=== PATIENT | female | born 1965 | race American Indian/Alaskan Native ===

== ENCOUNTER 2017-10-25 08:38 | Inpatient (IN) | payer OTHER ==
[2017-10-25 08:39] VITALS: BMI 34.2
[2017-10-25 10:01] LABS: BASO # 0.1 K/uL (0.0-0.2); BASO % 1.3 % (0.0-2.0); EOS # 0.3 K/uL (0.0-0.7); EOS % 4.9 % (0.0-4.0); HEMOGLOBIN 11.2 g/dL (12.0-16.0); LYMPH # 2.2 K/uL (1.0-4.3); LYMPH % 33.5 % (20.0-40.0); MEAN CORPUSCULAR HEMOGLOBIN 25.2 pg (27.0-31.0); MEAN CORPUSCULAR HGB CONC 32.3 g/dL (33.0-37.0); MEAN PLATELET VOLUME 7.5 fl (7.2-11.7); MONO # 0.4 K/uL (0.0-0.8); MONO % 6.3 % (0.0-10.0); NEUT # 3.5 K/uL (1.8-7.0); NRBC % 0.1 % (0.0-0.0); RBC 4.44 Mil/uL (3.80-5.20); WHITE BLOOD COUNT 6.6 K/uL (4.8-10.8)
[2017-10-25 10:12] LABS: PARTIAL THROMBOPLASTIN TIME 28.3 Seconds (25.6-37.1); PROTHROMBIN TIME 11.2 Seconds (9.8-13.1)
[2017-10-25 10:15] LABS: ALB/GLOB RATIO 1.2 (1.0-2.1); ALBUMIN 4.1 g/dL (3.5-5.0); ALT/SGPT 24 U/L (9-52); AST/SGOT 18 U/L (14-36); BLOOD UREA NITROGEN 15 mg/dl (7-17); CALCIUM 9.7 mg/dL (8.4-10.2); GFR AFRICAN-AMERICAN > 60; GFR NON-AFRICAN AMERICAN > 60; HDL CHOLESTEROL 42 MG/DL (30-70)
[2017-10-25 10:26] LABS: LDL CHOLESTEROL 108 mg/dL (0-129)
--- NOTE | 2017-10-25 10:33 | RAD ---
HISTORY: double vision COMPARISON: 12/30/2015 FINDINGS: LUNGS: No consolidation Left perihilar oval nodular opacities are similar to earlier studies including a study dating back to 2013 this may relate to prominent vessels on end and/or stable nodules/granulomas. Stability since 2013 supports benign etiology. PLEURA: No significant pleural effusion identified, no pneumothorax apparent. CARDIOVASCULAR: Normal. OSSEOUS STRUCTURES: No significant abnormalities. VISUALIZED UPPER ABDOMEN: Normal. OTHER FINDINGS: None. IMPRESSION: No active disease.
[2017-10-25] MEDS ORDERED: Sodium Chloride 0.9% 50 ML IV ONE (10:52)
[2017-10-25] MEDS ORDERED: Iohexol 300 100 ML IJ ONE (10:52)
--- NOTE | 2017-10-25 11:03 | ED PDOC ---
HPI:STROKE - Time Time: 09:15 - Historian Historian: Patient - Chief Complaint Chief Complaint: other (double vision) - Onset Date: 10/24/17 Time: 08:00 Onset: Days (1+) - Timing Timing: Currently Symptomatic - Exacerbated by Exacerbated by:: Other (eye movement) - Relieved by Relieved by:: Nothing - TPA Positive for Contraindication: Yes Reason tPA is not being Administered: symptoms ongoing >24hr - Notes: Notes:: 52yo female presents c/o diplopia since yesterday morning on awakening from sleep. States sees double vision when looking straight ahead or to the right, when looks left vision improves. Denies weakness, numbness change in speech or swallowing. C/o left frontal headache. Also notes palpable mass to right side of upper neck/face noticed many months ago, for which PMD Dr Khan ordered a CT scan but has not yet gotten test. NIHSS Stroke Scale - Date/Time Evaluation Performed Date Performed: 10/25/17 Time Performed: 09:20 When Was NIHSS Performed: Baseline - How Severe is the Stroke Level of Consciousness: 0=Alert LOC to Questions: 0=Both comments correct LOC to commands: 0=Obeys both correctly Best Gaze: 0=Normal Visual: 1=Partial hemianopia Facial: 0=Normal Motor Arm - Left: 0=No drift Motor Arm - Right: 0=No drift Motor Leg - Left: 1=Drift before 5 sec Motor Leg - Right: 1=Drift before 5 sec Limb Ataxia: 1=Present Upper or Lower Sensory: 0=Normal Best Language: 0=No aphasia Dysarthia: 0=Normal articulation Extinction & Inattention (Neglect): 0=Normal, no object Score: 4 rTPA Inclusion/Exclusion - Refusal of Treatment Patient Refused Treatment: No - Inclusion Criteria for Altepase Patient is 18 years or Older: Yes The Clinical Diagnosis of Ischemic Stroke That is Causing a Potentially Disabling Neurological Deficit: Yes Time of Onset is Well Established to be Less Than 270 Minute Before Treatment Would Begin: No Risk/Benefit Discussed With Patient/Family Member Present: No - Exclusion Criteria for Altepase Uncontrolled Hypertension at Time of Treatment (Systolic BP above 185 or Diastolic BP above 110 mmHg): No Active Internal Bleeding: No Past Medical History Reviewed: Historical Data, Nursing Documentation, Vital Signs Vital Signs: Last Vital Signs Temp 96.9 F L 10/25/17 08:43 Pulse 72 10/25/17 08:43 Resp 22 10/25/17 08:43 BP 157/81 H 10/25/17 08:43 Pulse Ox 100 10/25/17 08:43 - Medical History PMH: Arthritis (on oral medication), Bronchitis, HTN Denies: Asthma, Atrial Fibrillation, CHF, COPD, Hypercholesterolemia, Seizures - Surgical History Surgical History: Denies: CABG, Pacemaker - Family History Family History: States: CAD - Living Arrangements Living Arrangements: With Family - Social History Current smoker - smoking cessation education provided: Yes - Home Medications Home Medications: Ambulatory Orders Medication Instructions Recorded Albuterol HFA [Ventolin HFA 90 2 puff IH [id number] #1 inh 08/09/15 mcg/actuation (8 g)] Prednisone 40 mg PO DAILY 4 Days tab 08/09/15 Promethazine/Codeine 5 ml PO Q6 #1 bottle 08/09/15 [Phenergan/Codeine Oral Syrup] Lisinopril [Zestril] 20 mg PO 04/28/16 Metoprolol Driscoll/Hydrochlorothiaz 1 each PO 04/28/16 [Dutoprol 25-12.5 mg Tablet] Sitagliptin Phos/Metformin HCl 1 each PO 04/28/16 [Janumet 50-1,000 mg Tablet] amLODIPine [Norvasc] 5 mg PO 04/28/16 Sulfamethoxazole/Trimethoprim 1 tab PO BID #14 tab 10/07/16 [Bactrim DS 800 mg-160 mg] - Allergies Allergies/Adverse Reactions: Allergies Allergy/AdvReac Type Severity Reaction Status Date / Time No Known Allergies Allergy Verified 10/07/16 11:41 Review of Systems Constitutional: Negative for: Fever, Chills Eyes: Positive for: Pain, Vision Change. Negative for: Eyelid Inflammation, Redness ENT: Negative for: Ear Discharge, Nose Discharge Cardiovascular: Negative for: Chest Pain, Palpitations Respiratory: Negative for: Cough Gastrointestinal: Negative for: Nausea, Vomiting Genitourinary Female: Negative for: Dysuria Musculoskeletal: Negative for: Neck Pain Skin: Negative for: Rash, Lesions, Jaundice Neurological: Negative for: Weakness, Numbness Psych: Negative for: Anxiety Physical Exam - Reviewed Nursing Documentation Reviewed: Yes Vital Signs Reviewed: Yes - Physical Exam Appears: Positive for: Well, Non-toxic, No Acute Distress Head Exam: Positive for: ATRAUMATIC, NORMAL INSPECTION, NORMOCEPHALIC Skin: Positive for: Normal Color, Warm, DRY Eye Exam: Positive for: Normal appearance, EOMI, PERRL. 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 Not candidate for code stroke as symptoms ongoing >24hr labs reviewed, clinically unremarkable Accession No. : [id number] Patient Name / ID : ZEESHAN BASURTO / [id number] Exam Date : 10/25/2017 11:08:01 ( Approved ) Study Comment : Sex / Age : F / 52Y Creator : Neri Higuera MD Dictator : Neri Higuera MD Utility Bill Complaints Investigator : [employer] Machine Set Up Mechanic : Neri Higuera MD Approver2 : Report Date : 10/25/2017 12:13:32 My Comment : PROCEDURE: CT neck and chest HISTORY: diplopia, R neck /parotid mass, smoker COMPARISON: None available TECHNIQUE: Computed tomography of the neck and chest was performed following the intravenous administration of contrast material. Contiguous 2.5 mm axial sections were acquired from the skullbase to the upper abdomen. Sagittal and coronal images were reformatted from the axial scan. Contrast administered: 100 mL Omnipaque 300 Total exam DLP: 1119.88 mGy-cm This CT exam was performed using 1 or more of the following dose reduction techniques: Automated exposure control, adjustment of the mA and/or kV according to patient size, and/or use of iterative reconstruction technique. FINDINGS: The nasopharynx is symmetric and normal in appearance. The parapharyngeal spaces are clear. The intrinsic muscles of the tongue are symmetric and normal in appearance. Oropharynx is normal in appearance. Epiglottis is unremarkable. The larynx is symmetric and normal in appearance The right parotid gland is significant for a rounded 1.3 cm mass in the superficial lobe. Differential diagnosis includes Warthin's tumor, pleomorphic adenoma or other salivary gland tumors. Biopsy is advised. Several unremarkable small parotid lymph nodes are noted bilaterally. The submandibular glands are unremarkable. There are shotty level 1 and 2 lymph nodes bilaterally. No significantly enlarged cervical lymph nodes are identified. The thyroid gland is unremarkable in appearance. . The lungs are significant for focal peribronchial infiltrate in the left upper lobe, parahilar. This is a nonspecific finding. Followup to clearing is advised to exclude underlying bronchoalveolar cell neoplasm. No other infiltrate is identified. There is no pulmonary mass identified. There is no mediastinal or hilar lymphadenopathy identified. Heart is normal in size. The thoracic aorta is normal in diameter. The main pulmonary artery is normal in diameter. There is a very small hiatal hernia noted. Sections through upper abdomen demonstrate no significant abnormality. Visualized osseous structures show no evidence fracture or lytic or blastic osseous lesion. IMPRESSION: 1.3 cm rounded right intra parotid mass in the superficial lobe. Biopsy is advised. No significant cervical lymphadenopathy. No other significant abnormality in the neck. There is a mild left upper lobe peribronchial infiltrate common nonspecific. Followup to clearing is advised to exclude underlying bronchoalveolar cell neoplasm. Small hiatal hernia. Otherwise unremarkable examination. Accession No. : [id number] Patient Name / ID : ZEESHAN BASURTO / [id number] Exam Date : 10/25/2017 11:02:16 ( Approved ) Study Comment : Sex / Age : F / 52Y Creator : Heavenly Pineda Dictator : Heavenly Pineda Utility Bill Complaints Investigator : [employer] Machine Set Up Mechanic : Heavenly Pineda Approver2 : Report Date : 10/25/2017 11:31:17 My Comment : PROCEDURE: CT HEAD WITHOUT CONTRAST. HISTORY: diplopia x1 day, R parotid/neck palpable mass COMPARISON: None available. TECHNIQUE: Axial computed tomography images were obtained through the head/brain without intravenous contrast. Radiation dose: Total exam DLP = 854 mGy-cm. This CT exam was performed using one or more of the following dose reduction techniques: Automated exposure control, adjustment of the mA and/or kV according to patient size, and/or use of iterative reconstruction technique. FINDINGS: HEMORRHAGE: No intracranial hemorrhage. BRAIN: No mass effect or edema. No atrophy or chronic microvascular ischemic changes. VENTRICLES: Unremarkable. No hydrocephalus. CALVARIUM: Unremarkable. PARANASAL SINUSES: Mild bilateral mucosal inflammatory thickening. Leftward nasal septal deviation. Swollen turbinates MASTOID AIR CELLS: Unremarkable as visualized. No inflammatory changes. OTHER FINDINGS: None. IMPRESSION: No intracranial hemorrhage or mass effect. Mild ethmoidal sinus mucosal inflammatory change. Leftward nasal septal deviation and swollen turbinates D/w Dr Negron rec MRI brain w/wo contrast and MRA brain/neck ASA ordered tylenol given for headache 2pm remains w diplopia to on R gaze Dr Chang covering Dr [facility]elia Khan, requested admission to [facility] and will follow Disposition - Clinical Impression Clinical Impression: Diplopia, Cranial nerve palsy, Parotid mass - Patient ED Disposition Is Patient to be Admitted: Yes - Disposition Disposition Time: 11:45 Condition: FAIR Forms: [employer] (Italian)
--- NOTE | 2017-10-25 11:33 | CT ---
PROCEDURE: CT HEAD WITHOUT CONTRAST. HISTORY: diplopia x1 day, R parotid/neck palpable mass COMPARISON: None available. TECHNIQUE: Axial computed tomography images were obtained through the head/brain without intravenous contrast. Radiation dose: Total exam DLP = 854 mGy-cm. This CT exam was performed using one or more of the following dose reduction techniques: Automated exposure control, adjustment of the mA and/or kV according to patient size, and/or use of iterative reconstruction technique. FINDINGS: HEMORRHAGE: No intracranial hemorrhage. BRAIN: No mass effect or edema. No atrophy or chronic microvascular ischemic changes. VENTRICLES: Unremarkable. No hydrocephalus. CALVARIUM: Unremarkable. PARANASAL SINUSES: Mild bilateral mucosal inflammatory thickening. Leftward nasal septal deviation. Swollen turbinates MASTOID AIR CELLS: Unremarkable as visualized. No inflammatory changes. OTHER FINDINGS: None. IMPRESSION: No intracranial hemorrhage or mass effect. Mild ethmoidal sinus mucosal inflammatory change. Leftward nasal septal deviation and swollen turbinates
--- NOTE | 2017-10-25 12:15 | CT ---
PROCEDURE: CT neck and chest HISTORY: diplopia, R neck /parotid mass, smoker COMPARISON: None available TECHNIQUE: Computed tomography of the neck and chest was performed following the intravenous administration of contrast material. Contiguous 2.5 mm axial sections were acquired from the skullbase to the upper abdomen. Sagittal and coronal images were reformatted from the axial scan. Contrast administered: 100 mL Omnipaque 300 Total exam DLP: 1119.88 mGy-cm This CT exam was performed using 1 or more of the following dose reduction techniques: Automated exposure control, adjustment of the mA and/or kV according to patient size, and/or use of iterative reconstruction technique. FINDINGS: The nasopharynx is symmetric and normal in appearance. The parapharyngeal spaces are clear. The intrinsic muscles of the tongue are symmetric and normal in appearance. Oropharynx is normal in appearance. Epiglottis is unremarkable. The larynx is symmetric and normal in appearance The right parotid gland is significant for a rounded 1.3 cm mass in the superficial lobe. Differential diagnosis includes Warthin's tumor, pleomorphic adenoma or other salivary gland tumors. Biopsy is advised. Several unremarkable small parotid lymph nodes are noted bilaterally. The submandibular glands are unremarkable. There are shotty level 1 and 2 lymph nodes bilaterally. No significantly enlarged cervical lymph nodes are identified. The thyroid gland is unremarkable in appearance. . The lungs are significant for focal peribronchial infiltrate in the left upper lobe, parahilar. This is a nonspecific finding. Followup to clearing is advised to exclude underlying bronchoalveolar cell neoplasm. No other infiltrate is identified. There is no pulmonary mass identified. There is no mediastinal or hilar lymphadenopathy identified. Heart is normal in size. The thoracic aorta is normal in diameter. The main pulmonary artery is normal in diameter. There is a very small hiatal hernia noted. Sections through upper abdomen demonstrate no significant abnormality. Visualized osseous structures show no evidence fracture or lytic or blastic osseous lesion. IMPRESSION: 1.3 cm rounded right intra parotid mass in the superficial lobe. Biopsy is advised. No significant cervical lymphadenopathy. No other significant abnormality in the neck. There is a mild left upper lobe peribronchial infiltrate common nonspecific. Followup to clearing is advised to exclude underlying bronchoalveolar cell neoplasm. Small hiatal hernia. Otherwise unremarkable examination.
--- NOTE | 2017-10-25 16:18 | CARD ---
APPROVED REPORT EKG Measurement Heart [id number] ID [id number] <Conclusion> Normal sinus rhythm Moderate voltage criteria for LVH, may be normal variant Borderline ECG
[2017-10-25] MEDS ORDERED: Gadodiamide 287 MG/ML VIAL (15ML) IV ONE (17:28)
--- NOTE | 2017-10-25 17:53 | MRI ---
PROCEDURE: MR Angiography of the neck without contrast HISTORY: diplopia R parotid mass COMPARISON: None available. TECHNIQUE: 3D [id number] angiography of the neck was performed. Rotating maximum intensity projection images of the cervical carotid and vertebral arteries were generated. The origins of the common carotid arteries were not visualized, which is a limitation inherent to the non-contrast time of flight technique. FINDINGS: RIGHT CAROTID ARTERIES: The visualized common carotid artery appears widely patent without significant stenosis through the bifurcation. Carotid bulb is patent with limited atherosclerotic plaque with a widely patent cervical internal carotid artery. No significant stenosis is appreciated involving the external carotid artery. LEFT CAROTID ARTERIES: The visualized common carotid artery appears widely patent without significant stenosis through the bifurcation. Carotid bulb is patent with limited atherosclerotic plaque with a widely patent cervical internal carotid artery. No significant stenosis is appreciated involving the external carotid artery. VERTEBRAL ARTERIES: The bilateral vertebral arteries appear patent but ectatic with the right dominant vertebrobasilar system evident. OTHER FINDINGS: None. IMPRESSION: Limited atherosclerotic plaque bilateral carotid bulb regions without significant stenosis involving the visualized bilateral common or cervical internal carotid arteries.
[2017-10-25 19:50] VITALS: RESP 18
--- NOTE | 2017-10-25 20:15 | CP.PCM.HP ---
History of Present Illness - History of Present Illness History of Present Illness: 52yo female presents c/o diplopia since yesterday morning on awakening from sleep. States sees double vision when looking straight ahead or to the right, when looks left vision improves. Denies weakness, numbness change in speech or swallowing. C/o left frontal headache. Also notes palpable mass to right side of upper neck/face noticed many months ago, for which PMD Dr Khan ordered a CT scan but has not yet gotten test. CT Scan: 1.3 cm mass @ right parotid PMH: HTN Bronchitis arthritis DM II Present on Admission - Present on Admission Any Indicators Present on Admission: No Past Patient History - Infectious Disease Hx of Infectious Diseases: None - Past Social History Smoking Status: Current Some Days Smoker - CARDIAC Hx Atrial Fibrillation: No Hx Congestive Heart Failure: No Hx Hypercholesterolemia: No Hx Hypertension: Yes Hx Pacemaker: No - PULMONARY Hx Asthma: No Hx Bronchitis: Yes Hx Chronic Obstructive Pulmonary Disease (COPD): No - NEUROLOGICAL Hx Seizures: No - ENDOCRINE/METABOLIC Hx Diabetes Mellitus Type 2: Yes - MUSCULOSKELETAL/RHEUMATOLOGICAL Hx Arthritis: Yes (on oral medication) - PSYCHIATRIC Hx Substance Use: No - SURGICAL HISTORY Hx Coronary Artery Bypass Graft: No - ANESTHESIA Hx Anesthesia: Yes Hx Anesthesia Reactions: No Meds Allergies/Adverse Reactions: Allergies Allergy/AdvReac Type Severity Reaction Status Date / Time No Known Allergies Allergy Verified 10/07/16 11:41 Results - Vital Signs Recent Vital Signs: Last Vital Signs Temp 98.2 F 10/25/17 19:49 Pulse 65 10/25/17 19:49 Resp 18 10/25/17 19:49 BP 149/82 10/25/17 19:49 Pulse Ox 100 10/25/17 19:49 - Labs Result Diagrams: 10/25/17 09:57 10/25/17 09:57 Labs: Laboratory Results - last 24 hr 10/25/17 10/25/17 10/25/17 09:57 09:57 09:57 WBC 6.6 RBC 4.44 Hgb 11.2 L Hct 34.6 MCV 78.0 L MCH 25.2 L MCHC 32.3 L RDW 14.0 Plt Count 343 MPV 7.5 Neut % (Auto) 54.0 Lymph % (Auto) 33.5 Linn % (Auto) 6.3 Eos % (Auto) 4.9 H Baso % (Auto) 1.3 Neut # 3.5 Lymph # 2.2 Linn # 0.4 Eos # 0.3 Baso # 0.1 PT INR APTT Sodium 144 Potassium 4.2 Chloride 104 Carbon Dioxide 29 Anion Gap 15 BUN 15 Creatinine 0.8 Est GFR ( Amer) > 60 Est GFR (Non-Af Amer) > 60 POC Glucose (mg/dL) Random Glucose 113 H Hemoglobin A1c 7.2 H Calcium 9.7 Total Bilirubin 0.3 AST 18 ALT 24 Alkaline Phosphatase 63 Troponin I < 0.0120 Total Protein 7.4 Albumin 4.1 Globulin 3.3 Albumin/Globulin Ratio 1.2 Triglycerides 87 D Cholesterol 182 LDL Cholesterol Direct 108 HDL Cholesterol 42 Blood Type Antibody Screen BBK History Checked 10/25/17 10/25/17 10/25/17 09:57 09:57 10:09 WBC RBC Hgb Hct MCV MCH MCHC RDW Plt Count MPV Neut % (Auto) Lymph % (Auto) Linn % (Auto) Eos % (Auto) Baso % (Auto) Neut # Lymph # Linn # Eos # Baso # PT 11.2 INR 1.0 APTT 28.3 Sodium Potassium Chloride Carbon Dioxide Anion Gap BUN Creatinine Est GFR ( Amer) Est GFR (Non-Af Amer) POC Glucose (mg/dL) 109 Random Glucose Hemoglobin A1c Calcium Total Bilirubin AST ALT Alkaline Phosphatase Troponin I Total Protein Albumin Globulin Albumin/Globulin Ratio Triglycerides Cholesterol LDL Cholesterol Direct HDL Cholesterol Blood Type O POSITIVE Antibody Screen Negative BBK History Checked Patient has bt Assessment & Plan (1) Cranial nerve palsy Status: Acute (2) Diplopia Status: Acute (3) Parotid mass Status: Acute (4) Bronchitis Status: Acute
[2017-10-26] MEDS ORDERED: Enoxaparin 40 mg Syringe SC SCH (09:00)
--- NOTE | 2017-10-26 10:53 | CP.PCM.PN ---
Subjective - Date & Time of Evaluation Date of Evaluation: 10/26/17 Time of Evaluation: 10:00 - Subjective Subjective: Feels well except for double vision in Right eye Consult has been called with Neurology / Dr Deborah Blancas Vital signs stable Objective - Vital Signs/Intake and Output Vital Signs (last 24 hours): Temp Pulse Resp BP Pulse Ox 98.2 F 63 18 139/88 98 10/26/17 07:31 10/26/17 08:57 10/26/17 07:31 10/26/17 08:57 10/26/17 07:31 - Medications Medications: Current Medications Amlodipine Besylate (Norvasc) 5 mg PO DAILY [facility] Last Admin: 10/26/17 08:57 Dose: 5 mg Enoxaparin Sodium (Lovenox) 40 mg SC DAILY [facility] PRN Reason: Protocol Last Admin: 10/26/17 08:56 Dose: 40 mg Metformin HCl (Glucophage) 1,000 mg PO BID [facility] Last Admin: 10/26/17 08:56 Dose: Not Given Metoprolol Tartrate (Lopressor) 25 mg PO Q12 [facility] Last Admin: 10/26/17 08:53 Dose: 25 mg Sitagliptin Phosphate (Januvia) 50 mg PO BID [facility] Last Admin: 10/26/17 08:56 Dose: 50 mg - Labs Labs: 10/25/17 09:57 10/25/17 09:57 PT 11.2 Seconds (9.8-13.1) 10/25/17 09:57 INR 1.0 (0.9-1.2) 10/25/17 09:57 APTT 28.3 Seconds (25.6-37.1) 10/25/17 09:57 - Eye Exam Eye Exam: Normal appearance Additional comments: c/o diploplia in right eye - Respiratory Exam Respiratory Exam: NORMAL BREATHING PATTERN - Cardiovascular Exam Cardiovascular Exam: REGULAR RHYTHM Assessment and Plan (1) Cranial nerve palsy Status: Acute (2) Diplopia Status: Acute (3) Parotid mass Status: Acute (4) Bronchitis Status: Acute
--- NOTE | 2017-10-26 14:20 | MRI ---
PROCEDURE: MRI BRAIN WITH AND WITHOUT CONTRAST HISTORY: diplopia, possible parotid mass COMPARISON: Noncontrast head CT from 10/25/2017. TECHNIQUE: Multiplanar, multisequence MR images of the brain were obtained with and without intravenous contrast enhancement. FINDINGS: HEMORRHAGE: None DWI: No evidence of an acute or early subacute infarction. BRAIN PARENCHYMA: There are small scattered T2/FLAIR hyperintense foci in the subcortical supratentorial white matter. There is no mass, mass effect or abnormal extra-axial fluid collection. There is no territorial infarction. The midline sagittal structures are normal. ENHANCEMENT: No abnormal intracranial enhancement. VENTRICLES: The ventricles are normal in size, shape and configuration. CRANIUM: There is normal bone marrow signal pattern. ORBITS: Grossly unremarkable. PARANASAL SINUSES/MASTOIDS: There is mild mucosal thickening in the paranasal sinuses. The mastoid air cells are predominantly clear. VASCULAR SYSTEM: There are normal signal voids in the larger intracranial arteries. OTHER FINDINGS: Incompletely imaged is an 8 mm T1 and T2 hyperintense enhancing nodule in the right parotid gland. IMPRESSION: 1. No acute intracranial abnormality. 2. Mild chronic microangiopathic changes and mild age-related global parenchymal volume loss. 3. Incompletely imaged 8 mm enhancing nodule in the right parotid gland. Dedicated thyroid ultrasound is recommended for further characterization. A preliminary report was provided by [employer] [facility].
[2017-10-26 15:59] VITALS: BP 112/64; PULSE 60; TEMP 98.4; O2SAT 99
--- NOTE | 2017-10-26 17:30 | CP.PCM.DIS ---
Provider - Provider Date of Admission: 10/25/17 14:19 Attending physician: Chavez Khan MD Primary care physician: Dr Chang Consults: Dr Pennie Blancas Time Spent in preparation of Discharge (in minutes): 33 Diagnosis - Discharge Diagnosis (1) Cranial nerve palsy Status: Acute (2) Diplopia Status: Acute (3) Parotid mass Status: Acute (4) Bronchitis Status: Acute Hospital Course - Lab Results Lab Results: Most Recent Lab Values WBC 6.6 K/uL (4.8-10.8) 10/25/17 09:57 RBC 4.44 Mil/uL (3.80-5.20) 10/25/17 09:57 Hgb 11.2 g/dL (12.0-16.0) L 10/25/17 09:57 Hct 34.6 % (34.0-47.0) 10/25/17 09:57 MCV 78.0 fl (81.0-99.0) L 10/25/17 09:57 MCH 25.2 pg (27.0-31.0) L 10/25/17 09:57 MCHC 32.3 g/dL (33.0-37.0) L 10/25/17 09:57 RDW 14.0 % (11.5-14.5) 10/25/17 09:57 Plt Count 343 K/uL (130-400) 10/25/17 09:57 MPV 7.5 fl (7.2-11.7) 10/25/17 09:57 Neut % (Auto) 54.0 % (50.0-75.0) 10/25/17 09:57 Lymph % (Auto) 33.5 % (20.0-40.0) 10/25/17 09:57 [place] % (Auto) 6.3 % (0.0-10.0) 10/25/17 09:57 Eos % (Auto) 4.9 % (0.0-4.0) H 10/25/17 09:57 Baso % (Auto) 1.3 % (0.0-2.0) 10/25/17 09:57 Neut # 3.5 K/uL (1.8-7.0) 10/25/17 09:57 Lymph # 2.2 K/uL (1.0-4.3) 10/25/17 09:57 [place] # 0.4 K/uL (0.0-0.8) 10/25/17 09:57 Eos # 0.3 K/uL (0.0-0.7) 10/25/17 09:57 Baso # 0.1 K/uL (0.0-0.2) 10/25/17 09:57 PT 11.2 Seconds (9.8-13.1) 10/25/17 09:57 INR 1.0 (0.9-1.2) 10/25/17 09:57 APTT 28.3 Seconds (25.6-37.1) 10/25/17 09:57 Sodium 144 mmol/l (132-148) 10/25/17 09:57 Potassium 4.2 MMOL/L (3.6-5.0) 10/25/17 09:57 Chloride 104 mmol/L (98-107) 10/25/17 09:57 Carbon Dioxide 29 mmol/L (22-30) 10/25/17 09:57 Anion Gap 15 (10-20) 10/25/17 09:57 BUN 15 mg/dl (7-17) 10/25/17 09:57 Creatinine 0.8 mg/dl (0.7-1.2) 10/25/17 09:57 Est GFR ( Amer) > 60 10/25/17 09:57 Est GFR (Non-Af Amer) > 60 10/25/17 09:57 POC Glucose (mg/dL) 249 mg/dL (65-110) H 10/26/17 10:31 Random Glucose 113 mg/dL (65-105) H 10/25/17 09:57 Hemoglobin A1c 7.2 % (4.2-6.5) H 10/25/17 09:57 Calcium 9.7 mg/dL (8.4-10.2) 10/25/17 09:57 Total Bilirubin 0.3 mg/dl (0.2-1.3) 10/25/17 09:57 AST 18 U/L (14-36) 10/25/17 09:57 ALT 24 U/L (9-52) 10/25/17 09:57 Alkaline Phosphatase 63 U/L (38-126) 10/25/17 09:57 Troponin I < 0.0120 ng/mL (0.00-0.120) 10/25/17 09:57 Total Protein 7.4 G/DL (6.3-8.2) 10/25/17 09:57 Albumin 4.1 g/dL (3.5-5.0) 10/25/17 09:57 Globulin 3.3 gm/dL (2.2-3.9) 10/25/17 09:57 Albumin/Globulin Ratio 1.2 (1.0-2.1) 10/25/17 09:57 Triglycerides 87 mg/DL (0-149) D 10/25/17 09:57 Cholesterol 182 mg/dL (0-199) 10/25/17 09:57 LDL Cholesterol Direct 108 mg/dL (0-129) 10/25/17 09:57 HDL Cholesterol 42 MG/DL (30-70) 10/25/17 09:57 Blood Type O POSITIVE 10/25/17 09:57 Antibody Screen Negative 10/25/17 09:57 BBK History Checked Patient has bt 10/25/17 09:57 Discharge Exam - Head Exam Head Exam: ATRAUMATIC, NORMAL INSPECTION, NORMOCEPHALIC Discharge Plan - Follow Up Plan Condition: FAIR Disposition: HOME/ ROUTINE
--- NOTE | 2017-10-26 17:57 | CON ---
DATE: 10/26/2017 NEUROLOGY CONSULTATION CHIEF COMPLAINT: Double vision of the right eye. HISTORY OF PRESENT ILLNESS: This is a 52-year-old woman with history of hypertension, dyslipidemia, type 2 diabetes mellitus, who mentioned that she has been having double vision since yesterday morning when she was awakening from sleep. She says she has double vision when she is looking straight or when she start to look towards the left with her right eye. When she looks towards the left side or covers her left eye, her right double vision improves. She has diffuse pressure headache otherwise. Currently she is doing much well. She still has mild double vision on the right eye. She has difficulty with abduction of the right eye, but no problem with adduction of the right eye. Extraocular movements in the left eye is normal. MRI of the brain showed no acute intracranial abnormalities. MRA of the neck shows no significant hemodynamic stenosis. PAST MEDICAL HISTORY: Diabetes, hypertension, dyslipidemia, diabetic peripheral neuropathy. MEDICATIONS: Reviewed by nurse reconciliation sheet. ALLERGIES: NO KNOWN DRUG ALLERGIES. SOCIAL HISTORY: No illicit drug use, smoking or EtOH abuse. FAMILY HISTORY: Noncontributory. REVIEW OF SYSTEMS: A 14-point review of systems negative except in the HPI. PHYSICAL EXAMINATION: VITAL SIGNS: Temperature of 98.4, pulse rate 60, blood pressure 112/64, respiratory rate 18, oxygen sat 99% on room air. GENERAL: Patient is sitting up in bed, in no acute distress. HEENT: Atraumatic, normocephalic. PERRLA. Extraocular muscles intact. NECK: Supple. No JVD, no adenopathy noted. LUNGS: Clear to auscultation. No adventitious sounds. HEART: S1, S2, normal rate and rhythm. No murmurs, rubs or gallops. ABDOMEN: Soft, nontender, nondistended. Bowel sounds present. EXTREMITIES: No clubbing, no cyanosis. Peripheral pulses 2+ bilaterally. NEUROLOGIC: Patient is alert and oriented to person, place, month and year. Speech is fluent without any errors. 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 Motor: Moves all extremities equally. Sensory: Decreased light touch and pinprick up to the calves bilaterally, decreased vibration of the toes. DTRs are 2+ throughout. Coordination: [id number] intact. Gait is deferred for now. LABORATORY DATA: A1c is 7.2. Sodium is 144, potassium 4.2, chloride 104, carbon dioxide 29, BUN of , creatinine 0.8, random glucose 113. ASSESSMENT: This is a 52-year-old woman with history of hypertension, type 2 diabetes mellitus, diabetic peripheral neuropathy, dyslipidemia, who presents with right eye double vision especially when her both eyes are opened and difficulty to abduct the right eye. When she covers her left eye with the hand, her double vision improves. MRI of the brain showed no acute intracranial abnormality. 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 PLAN: At this recommend: 1. Aspirin 81 mg p.o. daily. 2. Outpatient physical therapy for extraocular muscles therapy and describe some exercises that the patient can do for sixth nerve palsy. 3. Lipitor 20 mg p.o. daily for the dyslipidemia. 4. Keep blood sugars between 140 to 180. 5. 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 She is clinically stable for discharge. Nikolay Blancas MD
== END 2017-10-26 19:10 | disposition home or self-care (01) | DRG 123 ==
LOC: H.ER 08:38 → H.ERHOLD 14:19 → H.TEL 18:03 → OBSVTOIN 10-26 16:15
PROVIDERS: ADMIT Internal Medicine Cardiovascular Disease; ATTEND Internal Medicine Cardiovascular Disease
DX: H49.21 Sixth [abducent] nerve palsy, right eye (principal); E11.42 Type 2 diabetes mellitus with diabetic polyneuropathy; E78.5 Hyperlipidemia, unspecified; F17.200 Nicotine dependence, unspecified, uncomplicated; I10 Essential (primary) hypertension; I25.10 Atherosclerotic heart disease of native coronary artery without angina pectoris; J34.2 Deviated nasal septum; J40 Bronchitis, not specified as acute or chronic; K44.9 Diaphragmatic hernia without obstruction or gangrene; Z79.899 Other long term (current) drug therapy; M19.90 Unspecified osteoarthritis, unspecified site

== ENCOUNTER 2017-11-09 15:02 | Emergency (ER) | payer OTHER ==
[2017-11-09 15:02] VITALS: BMI 33.0
[2017-11-09 15:35] VITALS: BP 156/79; PULSE 61; RESP 20; TEMP 96.6; O2SAT 99
[2017-11-09] MEDS ORDERED: Albuterol-Ipratrop 3 mg / 0.5 (3 ml) UD ONE ×2 (17:00→18:23)
[2017-11-09] MEDS: Albuterol-Ipratrop 3 mg / 0.5 (3 ml) UD IH SCH ×3 (17:20→18:00)
[2017-11-09 17:33] LABS: BASO # 0.1 K/uL (0.0-0.2); EOS # 0.1 K/uL (0.0-0.7); EOS % 2.2 % (0.0-4.0); HEMOGLOBIN 11.4 g/dL (12.0-16.0); LYMPH # 1.6 K/uL (1.0-4.3); LYMPH % 23.4 % (20.0-40.0); MEAN CELL VOLUME 77.3 fl (81.0-99.0); MEAN CORPUSCULAR HEMOGLOBIN 24.7 pg (27.0-31.0); MONO # 0.4 K/uL (0.0-0.8); MONO % 6.2 % (0.0-10.0); NEUT # 4.5 K/uL (1.8-7.0); NEUT % 67.2 % (50.0-75.0); NRBC % 0.1 % (0.0-0.0); RBC 4.59 Mil/uL (3.80-5.20); RED CELL DISTRIBUTION WIDTH 13.8 % (11.5-14.5); WHITE BLOOD COUNT 6.8 K/uL (4.8-10.8)
[2017-11-09 17:49] LABS: BLOOD UREA NITROGEN 10 mg/dl (7-17); CALCIUM 10.2 mg/dL (8.4-10.2); GFR AFRICAN-AMERICAN > 60; GFR NON-AFRICAN AMERICAN > 60; MAGNESIUM 1.7 MG/DL (1.6-2.3)
--- NOTE | 2017-11-09 18:20 | ED PDOC ---
HPI: General Adult Time Seen by Provider: 11/09/17 15:59 Chief Complaint (Nursing): Flu-like Symptoms Chief Complaint (Provider): Flu-like Symptoms History Per: Patient History/Exam Limitations: no limitations Onset/Duration Of Symptoms: Other (x 1 week) Current Symptoms Are (Timing): Still Present Additional Complaint(s): Cassidy is a 52 year female who presents to the emergency department complaining of fever, cough, chills, body aches, and fatigues for 1 week. Patient states she went to his PCP on and was given Z-Pack. Patient states she finished her course of Z-Pack on Monday. Reports nasal congestion and decreased appetite. Tolerates PO fluids. PMD: Chavez Khan Past Medical History Reviewed: Historical Data, Nursing Documentation, Vital Signs Vital Signs: Last Vital Signs Temp 96.6 F L 11/09/17 15:32 Pulse 61 11/09/17 15:32 Resp 20 11/09/17 15:32 BP 156/79 H 11/09/17 15:32 Pulse Ox 99 11/09/17 18:37 - Medical History PMH: Arthritis (on oral medication), Bronchitis, HTN Denies: Asthma, Atrial Fibrillation, CHF, COPD, Hypercholesterolemia, Chronic Kidney Disease, Seizures - Surgical History Surgical History: Denies: CABG, Pacemaker - Family History Family History: States: CAD - Home Medications Home Medications: Ambulatory Orders Medication Instructions Recorded Sitagliptin Phos/Metformin HCl 1 tab PO BID 04/28/16 [Janumet 50-1,000 mg Tablet] amLODIPine [Norvasc] 5 mg PO DAILY 04/28/16 Alpha Lipoic Acid [Alpha Lipoic 600 mg PO DAILY 10/25/17 Acid] Ascorbic Acid [Vitamin C] 1,000 mg PO DAILY 10/25/17 Aspirin [Ecotrin] 81 mg PO DAILY 10/25/17 Cholecalciferol (Vitamin D3) 5,000 unit PO DAILY 10/25/17 [Vitamin D3] Darifenacin Hydrobromide [Enablex] 15 mg PO DAILY 10/25/17 Lisinopril/Hydrochlorothiazide 1 tab PO DAILY 10/25/17 [Lisinopril-Hctz 20-25 mg Tab] Metoprolol Tartrate [Lopressor] 25 mg PO BID 10/25/17 Zolpidem [Ambien] 10 mg PO HS 10/25/17 Albuterol HFA [Ventolin HFA 90 2 puff IH Q4 #1 puff 11/09/17 mcg/actuation (8 g)] Promethazine HCl/Codeine 5 ml PO Q4 PRN #1 syrup 11/09/17 [Prometh-Codein 6.25-10 mg/5 ml] predniSONE [predniSONE Tab] 40 mg PO DAILY #8 tab 11/09/17 - Allergies Allergies/Adverse Reactions: Allergies Allergy/AdvReac Type Severity Reaction Status Date / Time No Known Allergies Allergy Verified 10/07/16 11:41 Review of Systems ROS Statement: Except As Marked, All Systems Reviewed And Found Negative Constitutional: Positive for: Fever, Chills, Other (Body aches, fatigue, decreased appetite) ENT: Positive for: Nose Congestion Respiratory: Positive for: Cough Physical Exam - Reviewed Nursing Documentation Reviewed: Yes Vital Signs Reviewed: Yes - Physical Exam Appears: Positive for: Well, Non-toxic, No Acute Distress Head Exam: Positive for: ATRAUMATIC, NORMAL INSPECTION, NORMOCEPHALIC Skin: Positive for: Normal Color, Warm, Dry Eye Exam: Positive for: Normal appearance ENT: Positive for: Nasal Congestion, Other (Runny nose) Neck: Positive for: Normal Cardiovascular/Chest: Positive for: Regular Rate, Rhythm Respiratory: Positive for: Wheezing (with +1 retraction). Negative for: Respiratory Distress Gastrointestinal/Abdominal: Positive for: Normal Exam Extremity: Positive for: Normal ROM. Negative for: Deformity Neurologic/Psych: Positive for: Alert, Oriented (x 3) - Laboratory Results Result Diagrams: 11/09/17 17:10 11/09/17 17:10 - ECG O2 Sat by Pulse Oximetry: 99 (RA) Pulse Ox Interpretation: Normal Medical Decision Making Medical Decision Making: Time: 16:19 Impression: Bronchitis r/o pneumonia, influenza Plan: - EKG - Acetaminophen - Alcohol Serum - BMP - Beta-hCG, Quantitative - CMP - Drug Screen,Urine - Magnesium - Salicylate - Crisis Evaluation - CBC - Portable Chest X-Ray - Duoneb 3 mg/0.5 mg (3 ml) UD - SOLU-Medrol 125 mg IVP STAT - Peak Flow Pre/Post Treatment - Influenza A B Stat - Urinalysis (-) for influenza a/b Time: 18:23 Patient feels better. Lungs clear. No wheezing. No retractions. Patient was advised to follow up. Upon provider evaluation patient is medically improved and stable, and requires no further treatment in the ED at this time. Patient will be discharged with Rx for Ventolin HFA 90, predniONE tab, and HCl/Codeine, There is agreement to discharge plan. Return if symptoms persist or worsen. Scribe Attestation: Documented by Joseph Araiza, acting as a scribe for Joseph Arora MD Provider Scribe Attestation: All medical record entries made by the Scribe were at my direction and personally dictated by me. I have reviewed the chart and agree that the record accurately reflects my personal performance of the history, physical exam, medical decision making, and the department course for this patient. I have also personally directed, reviewed, and agree with the discharge instructions and disposition. Disposition - Clinical Impression Clinical Impression: Asthma, Bronchitis, Viral syndrome - Patient ED Disposition Is Patient to be Admitted: No - Disposition Referrals: Dinorah Kapoor, [Non-Staff] - Disposition: Routine/Home Disposition Time: 18:26 Condition: STABLE Additional Instructions: Anmol, thank you for letting us take care of you today. Your provider was Dr. Arora. You were treated for Asthma Exacerbation, Viral Syndrome. The emergency medical care you received today was directed at your acute symptoms. If you were prescribed any medication, please fill it and take as directed. It may take several days for your symptoms to resolve. Return to the Emergency Department if your symptoms worsen, do not improve, or if you have any other problems. Please contact your doctor or call one of the physicians/clinics you have been referred to that are listed on the Patient Visit Information form that is included in your discharge packet. Bring any paperwork you were given at discharge with you along with any medications you are taking to your follow up visit. Our treatment cannot replace ongoing medical care by a primary care provider (PCP) outside of the emergency department. Thank you for allowing the [facility] team to be part of your care today. If you had an X-Ray or CT scan: A Radiologist will review the ED reading if any change in treatment is needed we will contact you. If you had a blood, urine, or wound culture: It will take several days for the results, if any change in treatment is needed we will contact you. If you had an STI test: It will take 48 hours for the results. Please call after 1 week if you have not heard back. Prescriptions: Albuterol HFA [Ventolin HFA 90 mcg/actuation (8 g)] 2 puff IH Q4 #1 puff predniSONE [predniSONE Tab] 40 mg PO DAILY #8 tab Promethazine HCl/Codeine [Prometh-Codein 6.25-10 mg/5 ml] 5 ml PO Q4 PRN #1 syrup PRN Reason: Cough Instructions: Asthma (ED), Viral Syndrome (ED) Forms: [employer] (Jordanian), [facility] ED School/Work Excuse
--- NOTE | 2017-11-09 18:54 | RAD ---
HISTORY: Cough, pneumonia suspected COMPARISON: 10/25/2017 FINDINGS: LUNGS: No active pulmonary disease. PLEURA: No significant pleural effusion identified, no pneumothorax apparent. CARDIOVASCULAR: No radiographic findings to suggest acute or significant cardiovascular disease. OSSEOUS STRUCTURES: No significant abnormalities. VISUALIZED UPPER ABDOMEN: Normal. OTHER FINDINGS: None. IMPRESSION: No active disease. No significant interval change compared to the prior examination(s). Concordant results with the preliminary interpretation rendered by the emergency department physician procedure.
== END 2017-11-09 18:30 | disposition home or self-care (01) ==
LOC: H.ER 15:02
DX: J45.909 Unspecified asthma, uncomplicated (principal); B34.9 Viral infection, unspecified; I10 Essential (primary) hypertension; Z82.49 Family history of ischemic heart disease and other diseases of the circulatory system; Z79.82 Long term (current) use of aspirin
CPT/HCPCS: 71045; 80048; 83735; 85025; 87804; 96374; 99281; J2930

== ENCOUNTER 2018-04-16 12:50 | Emergency (ER) | payer OTHER ==
[2018-04-16 12:50] VITALS: BMI 33.0
[2018-04-16 13:03] VITALS: O2SAT 100
--- NOTE | 2018-04-16 13:37 | ED PDOC ---
HPI: Chest Pain Time Seen by Provider: 04/16/18 13:18 Chief Complaint (Nursing): Chest Pain History Per: Patient History/Exam Limitations: no limitations Onset/Duration Of Symptoms: Days, Intermittent Episodes Current Symptoms Are (Timing): Gone Now Severity: Moderate Pain Scale Rating Of: 7 Quality: Pressure Exacerbating Factors: None Alleviating Factors: Other (mild with tums) Additional Complaint(s): CC: chest pain HPI: 52 YO female with PMHx of HTN, and NIDDM presents to [facility] ED for chest pain. Pt states that she had the first episode of chest pain 2 weeks ago, sudden onset pressure like chest pain in the mediastinum, no radiation and no associated symptoms. Pain lasted for a few mins and resolved on its own. Pt had a second episode last night when she was watching TV, mild improvement of the pain with tums, and pain started again around 1PM today. Pain resolved on its own in a few mins, no associated symptoms. Denies dyspnea, palpitations, n/v/d/ c. Sleeping with 4 pillow at home, baseline, ambulating without pain or dyspnea. Took pt meds today. PMD: Dr. Khan PMHx: HTN, and NIDDM SurGhx: uterine fibroids, hysterectomy 15+yrs ago SH: smoking 4 cigarettes a day, social ETOH and denies illicit drug use FH: hx of HTN and CAD Allergies: NKDA Meds: norvasc 5, metropolol 25mg BID, Lisinipril, janumet Past Medical History Vital Signs: Last Vital Signs Temp 97.9 F 04/16/18 13:02 Pulse 54 L 04/16/18 14:33 Resp 18 04/16/18 13:02 BP 118/70 04/16/18 14:26 Pulse Ox 100 04/16/18 16:29 - Medical History PMH: Arthritis (on oral medication), Bronchitis, Diabetes, HTN Denies: Asthma, Atrial Fibrillation, CHF, COPD, Hypercholesterolemia, Chronic Kidney Disease, Seizures - Surgical History Surgical History: Denies: CABG, Pacemaker - Family History Family History: States: CAD, Hypertension - Home Medications Home Medications: Ambulatory Orders Medication Instructions Recorded Sitagliptin Phos/Metformin HCl 1 tab PO BID 04/28/16 [Janumet 50-1,000 mg Tablet] amLODIPine [Norvasc] 5 mg PO DAILY 04/28/16 Alpha Lipoic Acid [Alpha Lipoic 600 mg PO DAILY 10/25/17 Acid] Ascorbic Acid [Vitamin C] 1,000 mg PO DAILY 10/25/17 Aspirin [Ecotrin] 81 mg PO DAILY 10/25/17 Cholecalciferol (Vitamin D3) 5,000 unit PO DAILY 10/25/17 [Vitamin D3] Darifenacin Hydrobromide [Enablex] 15 mg PO DAILY 10/25/17 Lisinopril/Hydrochlorothiazide 1 tab PO DAILY 10/25/17 [Lisinopril-Hctz 20-25 mg Tab] Metoprolol Tartrate [Lopressor] 25 mg PO BID 10/25/17 Zolpidem [Ambien] 10 mg PO HS 10/25/17 Albuterol HFA [Ventolin HFA 90 2 puff IH Q4 #1 puff 11/09/17 mcg/actuation (8 g)] Promethazine HCl/Codeine 5 ml PO Q4 PRN #1 syrup 11/09/17 [Prometh-Codein 6.25-10 mg/5 ml] predniSONE [predniSONE Tab] 40 mg PO DAILY #8 tab 11/09/17 - Allergies Allergies/Adverse Reactions: Allergies Allergy/AdvReac Type Severity Reaction Status Date / Time No Known Allergies Allergy Verified 04/16/18 12:55 Review of Systems Constitutional: Negative for: Fever, Chills Cardiovascular: Positive for: Chest Pain. Negative for: Palpitations, Orthopnea , Edema Respiratory: Negative for: Cough, Shortness of Breath Gastrointestinal: Negative for: Nausea, Vomiting, Abdominal Pain, Diarrhea, Constipation Genitourinary Female: Negative for: Dysuria, Frequency Musculoskeletal: Negative for: Neck Pain Neurological: Negative for: Weakness, Numbness Physical Exam - Physical Exam Appears: Positive for: No Acute Distress Skin: Positive for: Normal Color Eye Exam: Positive for: Normal appearance, EOMI Neck: Positive for: Painless ROM Cardiovascular/Chest: Positive for: Regular Rate, Rhythm. Negative for: Murmur Respiratory: Positive for: Normal Breath Sounds. Negative for: Rales, Wheezing Gastrointestinal/Abdominal: Positive for: Normal Exam, Bowel Sounds, Soft. Negative for: Tenderness Back: Positive for: Normal Inspection Extremity: Positive for: Normal ROM. Negative for: Pedal Edema Neurologic/Psych: Positive for: Alert - Laboratory Results Result Diagrams: 04/16/18 14:29 04/16/18 14:29 - ECG O2 Sat by Pulse Oximetry: 100 - Progress ED Course And Treament: 52 YO Female with chest pain. -EKG -cbc, cmp, trops, coags -ASA 81mg EKG reviewed no acute ST changes, Sinus bradycardia with rate of 57 Bloodwork is reviewed with patient, Trops x 1 neg, BNP neg Pending CXR 15:23-- pt is seen and reexamined, states that she is feeling well. No chest pain at present Findings discussed with patient. Will contact pts Activities Manager Dr. Khan to discuss findings. 16:28-- spoke to Dr. Khan, findings discussed. Pt can follow up with Dr. Khan as outpatient. CXR no acute cardiopulmonary findings; interpreted by me Pt is feeling well will d/c pt home with follow up with Dr. Khan Pt agrees with plan. Disposition - Clinical Impression Clinical Impression: Atypical chest pain - Disposition Referrals: Chavez Khan MD [Staff Provider] - Disposition Time: 17:27 Condition: STABLE Instructions: Chest Pain Forms: [facility] (Thai)
[2018-04-16 14:44] LABS: BASO # 0.1 K/uL (0.0-0.2); BASO % 1.1 % (0.0-2.0); EOS # 0.3 K/uL (0.0-0.7); EOS % 4.5 % (0.0-4.0); HEMOGLOBIN 10.9 g/dL (12.0-16.0); LYMPH # 3.1 K/uL (1.0-4.3); LYMPH % 44.7 % (20.0-40.0); MEAN CELL VOLUME 78.2 fl (81.0-99.0); MEAN CORPUSCULAR HEMOGLOBIN 25.2 pg (27.0-31.0); MEAN CORPUSCULAR HGB CONC 32.2 g/dL (33.0-37.0); MONO # 0.4 K/uL (0.0-0.8); MONO % 5.9 % (0.0-10.0); NEUT % 43.8 % (50.0-75.0); NRBC % 0.1 % (0.0-0.0); RBC 4.31 Mil/uL (3.80-5.20); RED CELL DISTRIBUTION WIDTH 14.4 % (11.5-14.5); WHITE BLOOD COUNT 6.9 K/uL (4.8-10.8)
[2018-04-16 15:02] LABS: PROTHROMBIN TIME 11.4 Seconds (9.8-13.1)
[2018-04-16 15:03] LABS: PARTIAL THROMBOPLASTIN TIME 23.9 Seconds (25.6-37.1)
[2018-04-16 15:39] LABS: BLOOD UREA NITROGEN 14 mg/dl (7-17); CALCIUM 9.8 mg/dL (8.4-10.2); GFR AFRICAN-AMERICAN > 60; GFR NON-AFRICAN AMERICAN > 60
[2018-04-16 15:55] LABS: B-TYPE NATRIURETIC PEPTIDE 86.5 pg/ml (0-900)
[2018-04-16 17:40] VITALS: BP 131/68; PULSE 62; RESP 15; TEMP 98
--- NOTE | 2018-04-16 17:43 | RAD ---
HISTORY: CP COMPARISON: Chest radiograph dated 11/09/2017. TECHNIQUE: Chest PA and lateral FINDINGS: LUNGS: No active pulmonary disease. PLEURA: No significant pleural effusion identified. No pneumothorax apparent. CARDIOVASCULAR: Atherosclerotic aortic calcifications. Cardiomediastinal silhouette stably prominent. OSSEOUS STRUCTURES: Unchanged. VISUALIZED UPPER ABDOMEN: Normal. OTHER FINDINGS: None. IMPRESSION: No active disease.
== END 2018-04-16 17:38 | disposition home or self-care (01) ==
LOC: H.ER 12:50
DX: R07.9 Chest pain, unspecified (principal); E11.9 Type 2 diabetes mellitus without complications; F17.210 Nicotine dependence, cigarettes, uncomplicated; I10 Essential (primary) hypertension; Z79.82 Long term (current) use of aspirin; Z82.49 Family history of ischemic heart disease and other diseases of the circulatory system

== ENCOUNTER 2018-10-24 08:43 | Emergency (ER) | payer OTHER ==
[2018-10-24 08:44] VITALS: BMI 33.0
[2018-10-24 08:47] VITALS: RESP 18; TEMP 97.8
[2018-10-24] MEDS ORDERED: Sodium Chloride 0.9% 1,000 ML IV STA (09:03)
[2018-10-24 09:33] LABS: BASO % 0.3 % (0.0-2.0); EOS # 0.3 K/uL (0.0-0.7); EOS % 5.2 % (0.0-4.0); HEMOGLOBIN 10.5 g/dL (12.0-16.0); LYMPH # 2.5 K/uL (1.0-4.3); LYMPH % 37.9 % (20.0-40.0); MEAN CORPUSCULAR HEMOGLOBIN 25.5 pg (27.0-31.0); MEAN CORPUSCULAR HGB CONC 32.3 g/dL (33.0-37.0); MEAN PLATELET VOLUME 7.5 fl (7.2-11.7); MONO # 0.4 K/uL (0.0-0.8); MONO % 5.9 % (0.0-10.0); NEUT # 3.4 K/uL (1.8-7.0); NEUT % 50.7 % (50.0-75.0); RBC 4.1 Mil/uL (3.80-5.20); RED CELL DISTRIBUTION WIDTH 14.2 % (11.5-14.5); WHITE BLOOD COUNT 6.6 K/uL (4.8-10.8)
[2018-10-24 09:38] LABS: ALB/GLOB RATIO 1.2 (1.0-2.1); ALBUMIN 3.8 g/dL (3.5-5.0); ALT/SGPT 14 U/L (9-52); AST/SGOT 19 U/L (14-36); BLOOD UREA NITROGEN 18 mg/dl (7-17); CALCIUM 9.4 mg/dL (8.4-10.2); GFR NON-AFRICAN AMERICAN > 60
--- NOTE | 2018-10-24 09:53 | ED PDOC ---
HPI: Back Time Seen by Provider: 10/24/18 08:56 Chief Complaint (Nursing): Back Pain Chief Complaint (Provider): Back Pain History Per: Patient History/Exam Limitations: no limitations Onset/Duration Of Symptoms: Days (x1 week ) Current Symptoms Are (Timing): Still Present Additional Complaint(s): Cassidy Corea is a 53 year old female with a past medical history of HTN and diabetes, who presents to the emergency department complaining of back pain, onset x1 week ago. Patient states she was at home cooking food for the family when the pain started. She states it was on both sides at first but then became worse on the left side that radiated down her left leg. Patient denies any urinary symptoms, including hematuria, GI symptoms, fever, chills, nausea, or vomiting. PMD: Erin Storey Past Medical History Reviewed: Historical Data, Nursing Documentation, Vital Signs Vital Signs: Last Vital Signs Temp 97.8 F 10/24/18 08:46 Pulse 63 10/24/18 08:46 Resp 18 10/24/18 08:46 BP 154/94 H 10/24/18 08:46 Pulse Ox 98 10/24/18 08:50 - Medical History PMH: Arthritis (on oral medication), Bronchitis, Diabetes, HTN Denies: Asthma, Atrial Fibrillation, CHF, COPD, Hypercholesterolemia, Chronic Kidney Disease, Seizures - Surgical History Surgical History: No Surg Hx Denies: CABG, Pacemaker - Family History Family History: States: CAD, Hypertension - Social History Current smoker - smoking cessation education provided: Yes Alcohol: Occasional Drugs: Denies - Home Medications Home Medications: Ambulatory Orders Medication Instructions Recorded Sitagliptin Phos/Metformin HCl 1 tab PO BID 04/28/16 [Janumet 50-1,000 mg Tablet] amLODIPine [Norvasc] 5 mg PO DAILY 04/28/16 Alpha Lipoic Acid 600 mg PO DAILY 10/25/17 Ascorbic Acid [Vitamin C] 1,000 mg PO DAILY 10/25/17 Aspirin [Ecotrin] 81 mg PO DAILY 10/25/17 Cholecalciferol (Vitamin D3) 5,000 unit PO DAILY 10/25/17 [Vitamin D3] Darifenacin Hydrobromide [Enablex] 15 mg PO DAILY 10/25/17 Lisinopril/Hydrochlorothiazide 1 tab PO DAILY 10/25/17 [Lisinopril-Hctz 20-25 mg Tab] Metoprolol Tartrate [Lopressor] 25 mg PO BID 10/25/17 Zolpidem [Ambien] 10 mg PO HS 10/25/17 Albuterol HFA [Ventolin HFA 90 2 puff IH Q4 #1 puff 11/09/17 mcg/actuation (8 g)] Promethazine HCl/Codeine 5 ml PO Q4 PRN #1 syrup 11/09/17 [Prometh-Codein 6.25-10 mg/5 ml] predniSONE [predniSONE Tab] 40 mg PO DAILY #8 tab 11/09/17 Naproxen [Naprosyn] 500 mg PO BID PRN #20 tablet 10/24/18 Sulfamethoxazole/Trimethoprim 1 each PO BID #14 tablet 10/24/18 [Bactrim Ds Tablet] - Allergies Allergies/Adverse Reactions: Allergies Allergy/AdvReac Type Severity Reaction Status Date / Time No Known Allergies Allergy Verified 10/24/18 08:49 Review of Systems Constitutional: Negative for: Fever, Chills Gastrointestinal: Negative for: Nausea, Vomiting, Abdominal Pain Genitourinary Female: Negative for: Dysuria, Frequency, Incontinence, Hematuria Physical Exam - Reviewed Nursing Documentation Reviewed: Yes Vital Signs Reviewed: Yes - Physical Exam Appears: Positive for: Non-toxic, No Acute Distress Head Exam: Positive for: ATRAUMATIC, NORMOCEPHALIC Skin: Positive for: Normal Color, Warm, Dry Eye Exam: Positive for: Normal appearance, EOMI, PERRL ENT: Positive for: Normal ENT Inspection Neck: Positive for: Normal, Painless ROM, Supple Cardiovascular/Chest: Positive for: Regular Rate, Rhythm. Negative for: Murmur Respiratory: Positive for: Normal Breath Sounds. Negative for: Respiratory Distress Gastrointestinal/Abdominal: Positive for: Normal Exam, Bowel Sounds, Soft. N egative for: Tenderness Back: Positive for: Other (mild moderate discomfort left lower back; mild palpable tenderness in left lower lumbar region; (-) rash in area ) Extremity: Positive for: Normal ROM, Other (motor strength 5/5 in ankle area ). Negative for: Pedal Edema, Deformity, Swelling Neurologic/Psych: Positive for: Alert, Oriented. Negative for: Motor/Sensory Deficits - Laboratory Results Result Diagrams: 10/24/18 09:19 10/24/18 09:19 Lab Results: Total Bilirubin 0.1 mg/dl (0.2-1.3) L 10/24/18 09:19 AST 19 U/L (14-36) 10/24/18 09:19 ALT 14 U/L (9-52) 10/24/18 09:19 Alkaline Phosphatase 72 U/L (38-126) 10/24/18 09:19 Total Protein 6.9 G/DL (6.3-8.2) 10/24/18 09:19 Albumin 3.8 g/dL (3.5-5.0) 10/24/18 09:19 Globulin 3.2 gm/dL (2.2-3.9) 10/24/18 09:19 Albumin/Globulin Ratio 1.2 (1.0-2.1) 10/24/18 09:19 - ECG O2 Sat by Pulse Oximetry: 98 (RA) Pulse Ox Interpretation: Normal Medical Decision Making Medical Decision Making: Time:901 Impression: Left sided back pain --Rule out UTI with pyelonephritis, kidney stone in left kidney area Plan: --CMP --Ed urine dipstick --CBC with differential --Toradol 30 mg IV --Sodium chloride 1,000 ml --Urine culture --IV insertion --Glucose, blood POC --Urinalysis Scribe Attestation: Documented by Jimbo Hewitt, acting as a scribe for Stephany Calderon MD. Provider Scribe Attestation: All medical record entries made by the Scribe were at my direction and personally dictated by me. I have reviewed the chart and agree that the record accurately reflects my personal performance of the history, physical exam, medical decision making, and the department course for this patient. I have also personally directed, reviewed, and agree with the discharge instructions and disposition. Disposition - Clinical Impression Clinical Impression: UTI (urinary tract infection) - Patient ED Disposition Is Patient to be Admitted: No Doctor Will See Patient In The: Office Counseled Patient/Family Regarding: Diagnosis, Need For Followup, Rx Given - Disposition Referrals: Chavez Khan MD [Staff Provider] - Disposition: Routine/Home Disposition Time: 14:03 Condition: IMPROVED Prescriptions: Naproxen [Naprosyn] 500 mg PO BID PRN #20 tablet PRN Reason: Pain, Moderate (4-7) Sulfamethoxazole/Trimethoprim [Bactrim Ds Tablet] 1 each PO BID #14 tablet Instructions: Urinary Tract Infection, Adult (DC) Forms: [employer] (Croatian), [facility] ED School/Work Excuse - POA Present On Arrival: None
[2018-10-24 09:54] LABS: SQUAMOUS EPITHIAL 37 /hpf (0-5); URINE BACTERIA OCC (<OCC); URINE BILIRUBIN NEGATIVE (NEGATIVE); URINE BLOOD NEGATIVE (NEGATIVE); URINE CLARITY CLOUDY (Clear); URINE COLOR AMBER (YELLOW); URINE GLUCOSE (UA) NEG (NEGATIVE); URINE LEUKOCYTE ESTERASE MOD Leu/uL (Negative); URINE PROTEIN 30 mg/dL (NEGATIVE)
[2018-10-24 17:28] VITALS: BP 150/88; PULSE 68; O2SAT 99
== END 2018-10-24 14:28 | disposition home or self-care (01) ==
LOC: H.ER 08:43
DX: N39.0 Urinary tract infection, site not specified (principal); I10 Essential (primary) hypertension; E11.9 Type 2 diabetes mellitus without complications; F17.200 Nicotine dependence, unspecified, uncomplicated
CPT/HCPCS: 80053; 81003; 82948; 85025; 87086; 99284; J1885; J7030

== ENCOUNTER 2018-11-04 11:05 | Emergency (ER) | payer OTHER ==
[2018-11-04 11:05] VITALS: BMI 33.0
[2018-11-04 11:09] VITALS: TEMP 98.2
--- NOTE | 2018-11-04 12:10 | ED PDOC ---
HPI: General Adult Time Seen by Provider: 11/04/18 11:16 Chief Complaint (Nursing): Female Genitourinary Chief Complaint (Provider): Left Flank Pain History Per: Patient History/Exam Limitations: no limitations Onset/Duration Of Symptoms: Days Current Symptoms Are (Timing): Still Present Additional Complaint(s): 53 year old female with PMHx of diabetes and HTN presents to the ED complaining of left sided flank pain. Patient was seen in the ED approximately 2 weeks ago with similar complaints and found to have UTI and provided antibiotics which she reports made her feel better. Currently, patient reports of burning urination for 4 days and for the past 2 days, she had fever and chills which resolved. She states her urine is dark now. Otherwise, she denies nausea, vomiting, diarrhea or weakness. PMD: Chavez Khan V Past Medical History Reviewed: Historical Data, Nursing Documentation, Vital Signs Vital Signs: Last Vital Signs Temp 98.2 F 11/04/18 11:09 Pulse 55 L 11/04/18 11:09 Resp 16 11/04/18 11:09 BP 135/71 11/04/18 11:09 Pulse Ox 100 11/04/18 11:09 - Medical History PMH: Arthritis (on oral medication), Bronchitis, Diabetes, HTN Denies: Asthma, Atrial Fibrillation, CHF, COPD, Hypercholesterolemia, Chronic Kidney Disease, Seizures - Surgical History Surgical History: Denies: CABG, Pacemaker - Family History Family History: States: CAD, Hypertension - Social History Current smoker - smoking cessation education provided: Yes Alcohol: None Drugs: Denies - Home Medications Home Medications: Ambulatory Orders Medication Instructions Recorded Sitagliptin Phos/Metformin HCl 1 tab PO BID 04/28/16 [Janumet 50-1,000 mg Tablet] amLODIPine [Norvasc] 5 mg PO DAILY 04/28/16 Alpha Lipoic Acid 600 mg PO DAILY 10/25/17 Ascorbic Acid [Vitamin C] 1,000 mg PO DAILY 10/25/17 Aspirin [Ecotrin] 81 mg PO DAILY 10/25/17 Cholecalciferol (Vitamin D3) 5,000 unit PO DAILY 10/25/17 [Vitamin D3] Darifenacin Hydrobromide [Enablex] 15 mg PO DAILY 10/25/17 Lisinopril/Hydrochlorothiazide 1 tab PO DAILY 10/25/17 [Lisinopril-Hctz 20-25 mg Tab] Metoprolol Tartrate [Lopressor] 25 mg PO BID 10/25/17 Zolpidem [Ambien] 10 mg PO HS 10/25/17 Albuterol HFA [Ventolin HFA 90 2 puff IH Q4 #1 puff 11/09/17 mcg/actuation (8 g)] Promethazine HCl/Codeine 5 ml PO Q4 PRN #1 syrup 11/09/17 [Prometh-Codein 6.25-10 mg/5 ml] predniSONE [predniSONE Tab] 40 mg PO DAILY #8 tab 11/09/17 Naproxen [Naprosyn] 500 mg PO BID PRN #20 tablet 10/24/18 Sulfamethoxazole/Trimethoprim 1 each PO BID #14 tablet 10/24/18 [Bactrim Ds Tablet] - Allergies Allergies/Adverse Reactions: Allergies Allergy/AdvReac Type Severity Reaction Status Date / Time No Known Allergies Allergy Verified 11/04/18 11:24 Review of Systems ROS Statement: Except As Marked, All Systems Reviewed And Found Negative Constitutional: Negative for: Fever, Chills Gastrointestinal: Positive for: Abdominal Pain. Negative for: Nausea, Vomiting, Diarrhea Genitourinary Female: Positive for: Dysuria Neurological: Negative for: Weakness, Numbness Physical Exam - Reviewed Nursing Documentation Reviewed: Yes Vital Signs Reviewed: Yes - Physical Exam Appears: Positive for: Well, Non-toxic, No Acute Distress Head Exam: Positive for: ATRAUMATIC, NORMAL INSPECTION, NORMOCEPHALIC Skin: Positive for: Normal Color, Warm, Dry. Negative for: Rash Eye Exam: Positive for: EOMI, Normal appearance, PERRL ENT: Positive for: Normal ENT Inspection Neck: Positive for: Normal, Painless ROM, Supple. Negative for: Decreased ROM Cardiovascular/Chest: Positive for: Regular Rate, Rhythm. Negative for: Murmur Respiratory: Positive for: Normal Breath Sounds. Negative for: Decreased Breath Sounds, Wheezing, Respiratory Distress Gastrointestinal/Abdominal: Positive for: Soft, Tenderness (mild upper and lower quadrant ), Other (normal exam on right side). Negative for: Rebound Back: Positive for: Normal Inspection, Other (no palpable tenderness on the back). Negative for: L CVA Tenderness, R CVA Tenderness Extremity: Positive for: Normal ROM. Negative for: Tenderness, Pedal Edema, Deformity Neurologic/Psych: Positive for: Alert, Oriented (x3). Negative for: Motor/Sensory Deficits - Laboratory Results Result Diagrams: 11/04/18 11:55 11/04/18 11:55 - ECG O2 Sat by Pulse Oximetry: 100 (RA) Pulse Ox Interpretation: Normal Medical Decision Making Medical Decision Making: Time: 1144 Initial Impression: left sided flank pain Differential Diagnosis: kidney stones, diverticulosis, diverticulitis Initial Plan: ABD & Pelvis IV contrast only [CT] ED urine CBC w/ differential Urine C&S Urinalysis Reevaluation Urine dip is negative Scribe Attestation: Documented by Beata Klein, acting as a scribe for Stephany Calderon MD. Provider Scribe Attestation: All medical record entries made by the Scribe were at my direction and personally dictated by me. I have reviewed the chart and agree that the record accurately reflects my personal performance of the history, physical exam, medical decision making, and the department course for this patient. I have also personally directed, reviewed, and agree with the discharge instructions and disposition. Disposition - Clinical Impression Clinical Impression: Back pain, Thickened endometrium - Patient ED Disposition Is Patient to be Admitted: No Doctor Will See Patient In The: Office Counseled Patient/Family Regarding: Diagnosis, Need For Followup - Disposition Referrals: Murali Sullivan MD [Staff Provider] - Disposition: Routine/Home Disposition Time: 14:39 Condition: STABLE Instructions: Low Back Pain (DC) Forms: [employer] (American) - Pt Status Changed To: Hospital Disposition Of: IP to OP/OBS (Code 44) - POA Present On Arrival: None
[2018-11-04 12:17] LABS: BASO # 0.1 K/uL (0.0-0.2); EOS # 0.3 K/uL (0.0-0.7); EOS % 4.8 % (0.0-4.0); HEMOGLOBIN 11.6 g/dL (12.0-16.0); LYMPH # 3.4 K/uL (1.0-4.3); LYMPH % 59.9 % (20.0-40.0); MEAN CELL VOLUME 81.2 fl (81.0-99.0); MEAN CORPUSCULAR HEMOGLOBIN 25.5 pg (27.0-31.0); MEAN CORPUSCULAR HGB CONC 31.4 g/dL (33.0-37.0); MEAN PLATELET VOLUME 7.7 fl (7.2-11.7); MONO # 0.4 K/uL (0.0-0.8); MONO % 6.6 % (0.0-10.0); NEUT # 1.6 K/uL (1.8-7.0); NEUT % 27.7 % (50.0-75.0); NRBC % 0.2 % (0.0-0.0); RBC 4.54 Mil/uL (3.80-5.20); RED CELL DISTRIBUTION WIDTH 14.6 % (11.5-14.5); WHITE BLOOD COUNT 5.7 K/uL (4.8-10.8)
[2018-11-04 12:26] LABS: SQUAMOUS EPITHIAL 5 /hpf (0-5); URINE BILIRUBIN NEGATIVE (NEGATIVE); URINE BLOOD NEGATIVE (NEGATIVE); URINE CLARITY SLIGHTY-CLOUDY (Clear); URINE COLOR YELLOW (YELLOW); URINE GLUCOSE (UA) NEG (NEGATIVE); URINE HYALINE CAST >20 /hpf (0-2); URINE LEUKOCYTE ESTERASE NEG Leu/uL (Negative); URINE PROTEIN NEGATIVE (NEGATIVE); URINE UROBILINOGEN 0.2-1.0 mg/dL (0.2-1.0)
[2018-11-04 12:50] LABS: ALB/GLOB RATIO 1.2 (1.0-2.1); ALBUMIN 4.4 g/dL (3.5-5.0); ALT/SGPT 15 U/L (9-52); AST/SGOT 24 U/L (14-36); BLOOD UREA NITROGEN 16 mg/dl (7-17); CALCIUM 9.4 mg/dL (8.4-10.2); GFR NON-AFRICAN AMERICAN > 60
[2018-11-04] MEDS ORDERED: Iohexol 300 100 ML IJ ONE (13:20)
[2018-11-04] MEDS ORDERED: Sodium Chloride 0.9% 50 ML IV ONE (13:21)
--- NOTE | 2018-11-04 14:31 | CT ---
Date of service: 11/04/2018 PROCEDURE: CT Abdomen and Pelvis . HISTORY: Left flank and left abdominal pain COMPARISON: None. TECHNIQUE: Contiguous axial images of the abdomen and pelvis. Oral contrast was administered. No IV contrast given. Coronal and Sagittal reformats generated. Radiation dose: Total exam DLP = 720.8 mGy-cm. This CT exam was performed using one or more of the following dose reduction techniques: Automated exposure control, adjustment of the mA and/or kV according to patient size, and/or use of iterative reconstruction technique. FINDINGS: LOWER THORAX: Heart is enlarged. No significant pericardial effusion. There is a small hiatal hernia with wall thickening of distal esophagus likely due to protrusion gastric mucosa. Small fluid levels felt be present as well. Findings suggest reflux. Consider follow-up endoscopy to assess for esophagitis or other intrinsic/invasive wall lesion. Lung bases are clear. No effusion or basilar pneumothorax. LIVER: Liver is mildly enlarged measuring nearly 19 cm in CC dimension. Mild to moderate fatty hepatic infiltration. No obvious hepatic mass collection or calcification. Portal and splenic veins opacified. GALLBLADDER AND BILE DUCTS: Gallbladder is physiologically distended. No evidence of intraluminal gallbladder calculi PANCREAS: Pancreas slightly atrophic and fatty replaced. No pancreatic mass collection or calcification. SPLEEN: Spleen exhibits normal size and attenuation pattern without mass collection or calcification. ADRENALS: There are no adrenal lesions. KIDNEYS AND URETERS: Kidneys demonstrate relatively symmetric nephrograms. There appears to be mild columnization of the proximal left ureter. Tiny approximately 2.5 mm calcification seen in the left aspect of the pelvis located just anterolateral to the left anterolateral border of the uterus and abutting the left posterior margin of the urinary bladder. This appears to be near but felt to be extrinsic to the distal ureter however clinical correlation with urinalysis recommended to exclude a small distal UVJ calculus as the distal UVJ region is not well delineated on this study. Urinary bladder is incompletely distended which in part accounts for thick-walled appearance. Correlation with urinalysis recommended to exclude cystitis. BLADDER: Urinary bladder is incompletely distended which in part accounts for thick-walled appearance. Correlation with urinalysis recommended to exclude cystitis. REPRODUCTIVE: The there is air seen in the vagina and possibly in the vaginal vault. The endometrium is thickened measuring approximately 16 mm. This is abnormal in a postmenopausal patient therefore clinical correlation with gynecological history recommended. Follow-up transvaginal ultrasound of the pelvis and SIDEHAND consultation recommended. APPENDIX: Appendix unremarkable BOWEL: Evaluation of the bowel is somewhat limited due to the lack of oral contrast material. The stomach is incompletely distended with slight thick-walled appearance. Gastritis not excluded. Visualized loops of small bowel exhibit normal contour and caliber. No evidence of acute mechanical small bowel obstruction. Moderately large amount of stool seen within the cecum at ascending and to a lesser degree transverse colon suggesting mild fecal retention/constipation. Most of the left colon including the sigmoid collapsed. PERITONEUM: Unremarkable. No fluid collection. No free air. LYMPH NODES: Unremarkable. No enlarged lymph nodes. VASCULATURE: Unremarkable. No aortic aneurysm. No aortic atherosclerotic calcification or mural plaque present. BONES: Mild multilevel degenerative spondylosis of the lower thoracic and lumbar spine. No acute compression fractures no retropulsed fragments. OTHER FINDINGS: None. IMPRESSION: Small hiatal hernia with what appears represent small amount of fluid in the distal esophagus and mild thickening of the distal esophageal wall. Findings likely due to protrusion gastric mucosa however esophagitis secondary to what appears to be reflux not excluded. Follow-up endoscopy may be prudent. Findings suggest mild constipation. Mild hepatomegaly and fatty infiltration. Tiny calcification in the left aspect of the pelvis which appears to be located between but abutting the left anterolateral border of the uterus and left posterolateral margin of the urinary bladder. Findings may represent small calcified phleboliths however the possibility of a distal left UVJ calculus not excluded. Clinical correlation with urinalysis. Additionally, the urinary bladder is incompletely distended which in part accounts for thick-walled appearance. Correlation with urinalysis recommended to exclude cystitis. Apparent thickened endometrium which would be abnormal in a postmenopausal patient. Clinical correlation with history recommended. Consider follow-up transvaginal pelvic ultrasound and SIDEHAND consultation
[2018-11-04 15:06] VITALS: BP 149/90; PULSE 70; RESP 18; O2SAT 99
== END 2018-11-04 15:06 | disposition home or self-care (01) ==
LOC: H.ER 11:05
DX: M54.9 Dorsalgia, unspecified (principal); N85.00 Endometrial hyperplasia, unspecified; I10 Essential (primary) hypertension
CPT/HCPCS: 74177; 80053; 81003; 81025; 85025; 87086; 99284; Q9967